=== PATIENT | male | born 1975 | race Two or more races ===

== ENCOUNTER 2023-05-11 19:44 | Inpatient (IN) | payer MEDICARE, MEDICAID ==
[~2023-05-11] VITALS: Ht 175.3 cm; Wt 63.6 kg
[2023-05-11] MEDS: D5W/SOD CHLO 0.9% 1,000 ML IV SCH ×2 (03:00→23:00)
[2023-05-11 20:57] LABS: Basophils # (auto) 0.1 10 ^3/uL (0-0.2); Basophils % (auto) 0.5 % (0.0-2.0); Eosinophils # (auto) 0.2 10 ^3/uL (0-0.8); Eosinophils % (auto) 1.3 % (0.0-7.0); Hematocrit 45.9 % (41.0-53.0); Hemoglobin 15.6 g/dL (13.5-17.5); Lymphocytes # (auto) 1.8 10 ^3/uL (0.4-5.4); Lymphocytes % (auto) 15.1 % (10.0-50.0); Mean Corpuscular Hgb Conc. 34.1 g/dL (32.0-36.0); Mean Corpuscular Volume 85.2 fL (80.0-100.0); Monocytes # (auto) 1.2 10 ^3/uL (0-1.3); Monocytes % (auto) 9.5 % (0.0-12.0); Neutrophils % (auto) 73.6 % (37.0-80.0); Nucleated Red Blood Cells % 0.1 %; Red Blood Cells 5.39 10^6/uL (4.5-5.90); Red Cell Distribution Width 14.1 % (11.8-14.3); White Blood Cell 12.3 10^3/uL (4.4-10.8)
[2023-05-11 21:07] LABS: Chloride 103 mmol/L (98-107); Potassium 4.5 mmol/L (3.5-5.1); Sodium 137 mmol/L (136-145)
[2023-05-11 21:08] LABS: Anion Gap 5 (5-15); Carbon Dioxide 29 mmol/L (20-30)
[2023-05-11 21:09] LABS: Calcium 9.9 mg/dL (8.5-10.1)
[2023-05-11 21:13] LABS: Glucose 117 mg/dL (74-106)
[2023-05-11 21:14] LABS: BUN/Creatinine Ratio 17.1 (10.0-20.0); Blood Urea Nitrogen 12 mg/dL (9-23)
[2023-05-11] MEDS ORDERED: SODIUM CHLORIDE 0.9% 1,000 ML IV ONE (22:30)
[2023-05-11] MEDS ORDERED: MORPHINE SULFATE 4 MG/ML SYR/VIAL IV ONE (22:30)
[2023-05-11] MEDS ORDERED: MORPHINE SULFATE INJ 2 MG/ml SYRG IV PRN (23:00)
[2023-05-11] MEDS ORDERED: ONDANSETRON HCL 4 MG/2 ML VIAL IV PRN (23:00)
[2023-05-12 00:15] VITALS: PULSE 87; RESP 16; O2SAT 96
[2023-05-12] MEDS ORDERED: LORazepam 2MG/ML-1ML VIAL IV ONE (03:15)
[2023-05-12 06:43] LABS: Basophils # (auto) 0.1 10 ^3/uL (0-0.2); Basophils % (auto) 0.6 % (0.0-2.0); Eosinophils # (auto) 0.3 10 ^3/uL (0-0.8); Hematocrit 39.6 % (41.0-53.0); Hemoglobin 13.6 g/dL (13.5-17.5); Lymphocytes # (auto) 2.5 10 ^3/uL (0.4-5.4); Lymphocytes % (auto) 27.9 % (10.0-50.0); Mean Corpuscular Hemoglobin 29.3 pg (28.0-32.0); Mean Corpuscular Hgb Conc. 34.5 g/dL (32.0-36.0); Mean Corpuscular Volume 84.9 fL (80.0-100.0); Monocytes % (auto) 11.4 % (0.0-12.0); Neutrophils % (auto) 57.1 % (37.0-80.0); Nucleated Red Blood Cells % 0.1 %; Red Blood Cells 4.66 10^6/uL (4.5-5.90); Red Cell Distribution Width 14.2 % (11.8-14.3); White Blood Cell 8.8 10^3/uL (4.4-10.8)
[2023-05-12 06:51] LABS: Alanine Aminotransferase 53 U/L (7-40); Albumin 3.8 g/dL (3.2-4.8); Alkaline Phosphatase 71 U/L (46-116); Anion Gap 6 (5-15); Aspartate Aminotransferase 32 U/L (13-40); BUN/Creatinine Ratio 15.3 (10.0-20.0); Blood Urea Nitrogen 11 mg/dL (9-23); Calcium 8.5 mg/dL (8.7-10.4); Carbon Dioxide 27 mmol/L (20-30); Chloride 106 mmol/L (98-107); Glucose 87 mg/dL (74-106); Potassium 3.8 mmol/L (3.5-5.1); Sodium 139 mmol/L (136-145)
[2023-05-12 06:52] LABS: Bilirubin, Total 0.7 mg/dL (0.2-1.0); Total Protein 6.2 g/dL (5.7-8.2)
[2023-05-12 08:12] LABS: INR 1.05 (0.9-1.15); Partial Thromboplastin Time 27.9 SEC (24.5-34.5)
[2023-05-12 08:15] LABS: Urine Epithelial Cast None Seen /hpf (<5)
[2023-05-12 08:27] LABS: Urine Bacteria NONE SEEN /hpf (None Seen); Urine Blood Negative /uL (Negative); Urine Clarity Clear (Clear); Urine Color Yellow (Yellow); Urine Protein, UAD 1+ (Negative); Urine Specific Gravity 1.019 (1.001-1.035); Urine Urobilinogen Normal (Negative); Urine WBC 16 /hpf (0 - 3)
[2023-05-12 08:55] VITALS: PULSE 80; RESP 18; O2SAT 95
[2023-05-12 09:20] LABS: Amphetamine Screen, Urine Neg (NEGATIVE); Barbiturate Scree,Urine Neg (NEGATIVE); Benzodiazephine Screen, Urine Neg (NEGATIVE); Cannabinoid Screen, Urine Neg (NEGATIVE); Cocaine Screen, Urine Neg (NEGATIVE); Opiate Scree,Urine Pos (NEGATIVE)
[2023-05-12 09:22] LABS: Phencyclidine Screen, Urine Neg (NEGATIVE)
[2023-05-12] MEDS ORDERED: ceFAZolin 2 GM/D5W100ml 100 ML IV ONE (12:10)
[2023-05-12] MEDS ORDERED: LIDOCAINE W/ EPINEPHRINE 1% 20ML VIAL ONE (12:29)
[2023-05-12] MEDS ORDERED: SUCCINYLCHOLINE CHLORIDE 20 MG/ML 10ML VIAL IV ONE (12:39)
[2023-05-12] MEDS ORDERED: fentaNYL CITRATE 100 MCG/2 ML VL ONE (12:41)
[2023-05-12] MEDS ORDERED: PROPOFOL 10 MG/ML 20 ML IV ONE (12:41)
[2023-05-12] MEDS ORDERED: ROCURONIUM 10MG/ML 10ML VIAL IV ONE (12:49)
[2023-05-12] MEDS ORDERED: ePHEDrine SULFATE 50 MG/ML AMP ONE (12:52)
[2023-05-12] MEDS ORDERED: BUPIVACAINE 0.25% INJ 50ML VIAL ONE (13:00)
[2023-05-12] MEDS ORDERED: MEPERIDINE HCL (25 MG/ML) 1ML VIAL ONE (13:04)
[2023-05-12] MEDS ORDERED: ROPIVACAINE 0.5% (5MG/ML) 20ML AMPULE IJ ONE (13:30)
[2023-05-12] MEDS ORDERED: SUGAMMADEX 200mg/2ml Vial (100MG/ML) IV ONE (13:39)
[2023-05-12 13:50] VITALS: O2SAT 100
[2023-05-12] MEDS ORDERED: ONDANSETRON HCL 4 MG/2 ML VIAL IV PRN (14:00)
[2023-05-12] MEDS ORDERED: MEPERIDINE HCL (25 MG/ML) 1ML VIAL IV PRN (14:00)
[2023-05-12] MEDS ORDERED: HYDROmorphone HCL 2 MG/ML VL/or syr IV PRN (14:00)
[2023-05-12 17:00] VITALS: BP 136/83; PULSE 67; RESP 18; TEMP 98; O2SAT 99
[2023-05-12] MEDS: ceFAZolin 1GM/50ML 50 ML IV SCH ×2 (17:26→23:59)
[2023-05-12 22:00] VITALS: BP 107/81; PULSE 84; RESP 16; TEMP 98; O2SAT 97
[2023-05-12] MEDS: POTASSIUM CHLORIDE 20 MEQ in D5W/LACTATED RINGERS 1,000 ML IV SCH (23:51)
[2023-05-13 05:00] VITALS: BP 138/84; PULSE 85; RESP 20; TEMP 99; O2SAT 97
[2023-05-13] MEDS: ceFAZolin 1GM/50ML 50 ML IV SCH ×2 (06:46→11:47)
[2023-05-13] MEDS: POTASSIUM CHLORIDE 20 MEQ in D5W/LACTATED RINGERS 1,000 ML IV SCH ×3 (07:54→10:54)
[2023-05-13 08:00] VITALS: BP 143/92; PULSE 77; RESP 16; TEMP 98.6; O2SAT 94
[2023-05-13 09:00] VITALS: BP 143/92; PULSE 77; RESP 16; TEMP 98.6; O2SAT 94
[2023-05-13] MEDS ORDERED: HYDR-4902 PO (11:07)
[2023-05-13] MEDS ORDERED: LEVO500T91 PO (11:07)
[2023-05-13] MEDS ORDERED: METR-344 PO (11:07)
[2023-05-13 12:29] VITALS: BP 143/92; PULSE 77; RESP 16; TEMP 98.6; O2SAT 94
== END 2023-05-13 14:05 | disposition home or self-care (01) | DRG 351 ==
LOC: ER 19:44 → EDBD 19:44 → OVERFLOW 23:04 → WEST WING 05-12 15:06
PROVIDERS: ADMIT Nurse Practitioner; ATTEND Family Medicine
PROC: 0YQ50ZZ Repair Right Inguinal Region, Open Approach (ICD-10-PCS; principal; 2023-05-12 12:44)
DX: K40.30 Unilateral inguinal hernia, with obstruction, without gangrene, not specified as recurrent (principal); K56.609 Unspecified intestinal obstruction, unspecified as to partial versus complete obstruction; Z59.00 Homelessness unspecified; F20.9 Schizophrenia, unspecified; E86.0 Dehydration; Z90.49 Acquired absence of other specified parts of digestive tract
CPT/HCPCS: 36415; 71045; 74176; 80048; 80053; 80307; 81001; 85025; 85610; 85730; 88302; 96360; 99291; G0378; J0330; J2704; J3490

== ENCOUNTER 2024-03-30 06:04 | Emergency (ER) | payer MEDICARE ==
[~2024-03-30] VITALS: Ht 182.9 cm; Wt 77.0 kg
[~2024-03-30 06:04] MED LIST: HYDR-4902 PO; LEVO500T91 PO; METR-344 PO
[2024-03-30 07:00] VITALS: BP 136/86; PULSE 82; RESP 15; TEMP 98.1; O2SAT 95
--- NOTE | 2024-03-30 07:01 | ED.PDOC ---
Musculoskeletal HPI Comments A 48 YEAR OLD MALE BROUGHT IN BY AMBULANCE PRESENTS TO THE ED WITH COMPLAINT OF BILATERAL FOOT PAIN. PATIENT STATES HE HAS BEEN EXPERIENCING BILATERAL FOOT PAIN DUE TO WALKING A LOT OUTSIDE DUE TO HIM BEING HOMELESS. PATIENT IS REQUESTING PAIN MEDICINE TO MANAGE HIS BILATERAL FOOT PAIN. PATIENT DENIES INJURY TO THE AFFECTED AREA, FEVER, CHILLS, SHORTNESS OF BREATH, CHEST PAIN, ABDOMINAL PAIN, NAUSEA, VOMITING, HEADACHE, OR OTHER COMPLAINTS. NO OTHER SYMPTOMS OR MODIFYING FACTORS AT THIS TIME. PATIENT IS ALERT, ORIENTED X 4, AND HAS STEADY GAIT. Chief Complaint: Lower Extremity Time Seen by MD: 06:28 Reviewed Notes: Nurses Notes, Medications, Allergies Allergies: Coded Allergies: NO KNOWN ALLERGIES (Unverified , 05/12/23) Home Meds Active Scripts Hydrocodone-Acetaminophen (Hydrocodone Bitartrate/AC 5-325 mg) 1 Tab Tab, 1 TAB PO QID PRN, #30 TAB Prov:MOLLY SOLOMON MD 05/13/23 Metronidazole (Flagyl) 500 Mg Tab, 1 TAB PO TID, #30 TAB Prov:MOLLY SOLOMON MD 05/13/23 Levofloxacin Hemihydrate (LEVAQUIN 500 MG) 500 Mg Tab, 1 TAB PO DAILY, #10 TAB Prov:MOLLY SOLOMON MD 05/13/23 Information Source: Patient Mode of Arrival: EMS Location: Bilateral Extremity Location: Foot Timing: Days Prehospital treatment: None Severity: Moderate Able to Move Extremity: Yes Bear Weight: Fully Pain: Moderate Mechanism: Blunt Trauma, Spontaneous Circumstances: Spontaneous Onset of Symptoms: Spontaneous Symptoms: Pain DVT Risk Factors: NONE Last Tetanus: Unknown Associated signs and symptoms: Foot pain Past Medical History PAST MEDICAL HISTORY: Schizophrenia Surgical History: Cholecystectomy Family History Family History: Reviewed,noncontributory to illness Social History Smoker: Cigarettes Alcohol: Occasionally Drugs: Marijuana, Methamphetamine Lives In: Homeless Constitutional: denies: chills, diaphoresis, fatigue, fever, malaise, sweats, weakness, others EENTM: denies: blurred vision, double vision, ear bleeding, ear discharge, ear drainage, ear pain, ear ringing, eye pain, eye redness, hearing loss, mouth pain, mouth swelling, nasal discharge, nose bleeding, nose congestion, nose pain, photophobia, tearing, throat pain, throat swelling, voice changes, others Respiratory: denies: cough, hemoptysis, orthopnea, SOB at rest, shortness of breath, SOB with excertion, stridor, wheezing, others Cardiovascular: denies: chest pain, dizzy spells, diaphoresis, Dyspnea on exertion, edema, irregular heart beat, left arm pain, lightheadedness, palpitations, PND, syncope, others Gastrointestinal: denies: abdomen distended, abdominal pain, blood streaked bowels, constipated, diarrhea, dysphagia, difficulty swallowing, hematemesis, melena, nausea, poor appetite, poor fluid intake, rectal bleeding, rectal pain, vomiting, others Genitourinary: denies: burning, dysuria, flank pain, frequency, hematuria, inc ontinence, penile discharge, penile sore, pain, testicle pain, testicle swelling, urgency, others Neurological: denies: dizziness, fainting, headache, left sided numbness, left sided weakness, numbness, paresthesia, pre-existing deficit, right sided numbness, right sided weakness, seizure, speech problems, tingling, tremors, weakness, others Musculoskeletal: reports: joint pain, muscle pain, others (BILATERAL FOOT PAIN); denies: back pain, gout, joint swelling, muscle stiffness, neck pain Integumetry: denies: bruises, change in color, change in hair/nails, dryness, laceration, lesions, lumps, rash, wounds, others Allergic/Immunocompromised: denies: Difficulty Healing, Frequent Infections, Hives, Itching, others Hematologic/Lymphatic: denies: anemia, blood clots, easy bleeding, easy bruising, swollen glands, others Endocrine: denies: excessive hunger, excessive sweating, excessive thirst, excessive urination, flushing, intolerance to cold, intolerance to heat, unexplained weight gain, unexplained weight loss, others Psychiatric: denies: anxiety, bipolar disorder, depression, hopeless, panic disorder, schizophrenia, sleepless, suicidal, others All Other Systems: Reviewed and Negative Physical Exam General Appearance: No Apparent Distress, Normal HEENT: Normal ENT Inspection, PERRL/EOMI, Pharynx Normal, TMs Normal Neck: Full Range of Motion, Non-Tender, Normal, Normal Inspection Respiratory: Chest Non-Tender, Lungs Clear, No Accessory Muscle Use, No Respiratory Distress, Normal Breath Sounds Cardiovascular: No Edema, No JVD, No Murmur, No Gallop, Normal Peripheral Pulses, Regular Rate/Rhythm Breast Exam: Deferred Gastrointestinal: No Organomegaly, Non Tender, No Pulsatile Mass, Normal Bowel Sounds, Soft Genitalia: Deferred Pelvic: Deferred Rectal: Deferred Extremities: No calf tenderness, Normal capillary refill, Normal inspection, Normal range of motion, No pedal edema, Tender (BILATERAL FOOT, NO REDNESS, SW ELLING AND OPEN WOUNDS, NORMAL FEET. ) Musculoskeletal : Apperance: Normal Neurologic: Alert, wind field manager II-XII nml as Tested, No Motor Deficits, Normal Affect, Normal Mood, No Sensory Deficits Cerebellar Function: Normal Reflexes: Normal Skin: Dry, Normal Color, Warm Peripheral Pulses: 2+ carotid (R), 2+ carotid (L), 2+ dorsalis pedis (R), 2+ dorsalis pedis (L) Lymphatic: No Adenopathy Was a procedure done? Was a procedure done?: No Differential Diagnosis EXT Differential Diagnosis: Sprain, DJD, Strain, Bursitis Other Differential Diagnosis CHRONIC FOOT PAIN X-Ray, Labs, Meds, VS Vital Signs Date Time Temp Pulse Resp B/P (MAP) Pulse Ox O2 Delivery O2 Flow Rate FiO2 03/30/24 06:46 95 Room Air 0 03/30/24 06:04 98.1 82 15 136/86 (103) 95 Current Medications Medications (Trade) Dose Ordered Sig/Arianna Route Start Time Stop Time Status Last Admin Ketorolac Tromethamine (Toradol Injection) 60 mg ONCE ONCE IM 03/30/24 07:00 03/30/24 07:17 DC 03/30/24 07:03 X-Ray, Labs, Meds, VS Comment EXTERNAL NOTES: NONE LABS ORDERED: NONE REVIEWED AND INTERPRETED RESULTS: NONE IMAGING ORDERED: NONE INDEPENDENT HISTORIANS: NONE TREATMENTS ORDERED: TORADOL 60 MG IM, FOOD AND JUICE GIVE TO THE PATIENT PATIENT'S CASE AND RESULTS HAVE BEEN DISCUSSED WITH THE ED ATTENDING PHYSICIAN AND THEY AGREE WITH MY PLAN OF CARE. I HAVE INSTRUCTED THE PATIENT TO FOLLOW UP WITH THEIR PCP IN 1-2 DAYS. THE PATIENT FULLY UNDERSTANDS AND IS AWARE THEY NEED TO FOLLOW UP WITH THEIR PCP FOR FURTHER EVALUATION IF THEIR SYMPTOMS PERSIST. Time of 1ST Reevaluation: 07:30 Reevaluation 1ST: Improved Patient Education/Counseling: Diagnosis, Treatment, Need For Follow Up Family Education/Counseling: Diagnosis, Treatment, Need For Follow Up Medical Screening: No EMC Exist At This Time Departure 1 Departure Time of Disposition: 07:30 Impression: Primary Impression: Bilateral foot pain Additional Impression: Homelessness Disposition: HOME / SELF CARE / HOMELESS Condition: Stable Additional Instructions: FOLLOW-UP WITH PCP IN 1 TO 2 DAYS. TAKE MEDICATIONS PRESCRIBED. RETURN TO ED FOR ANY NEW OR WORSENING SYMPTOMS. e-Prescriptions Naproxen (Naproxen) 500 Mg Tab 500 MG PO BID, #30 TAB Prov: LUIS PARKS 03/30/24 Discharged With: Self Critical Care Note Critical Care Time?: No Stability Stability form required: No I personally scribed for LUIS PARKS ([email or web address]) on 03/30/24 at 07:01. Electronically submitted by Barrera Benitez ([email or web address]). LUIS PARKS Mar 30, 2024 07:01
[2024-03-30] MEDS: KETOROLAC TROMETH 60MG/2ML VIAL IM ONE (07:03)
[2024-03-30] MEDS ORDERED: NAPR-746 PO (07:32)
== END 2024-03-30 07:52 | disposition home or self-care (01) ==
LOC: ER 06:04 → EDBD 06:04 → ER 07:32
DX: M79.671 Pain in right foot (principal); M79.672 Pain in left foot; F20.9 Schizophrenia, unspecified; F17.210 Nicotine dependence, cigarettes, uncomplicated; F15.90 Other stimulant use, unspecified, uncomplicated; Z90.49 Acquired absence of other specified parts of digestive tract; Z59.00 Homelessness unspecified; Z79.899 Other long term (current) drug therapy
CPT/HCPCS: 96372; 99283; J1885

== ENCOUNTER 2024-03-30 17:33 | Emergency (ER) | payer MEDICARE ==
[~2024-03-30] VITALS: Ht 175.3 cm; Wt 65.9 kg
[~2024-03-30 17:33] MED LIST changes: +NAPR-746 PO
--- NOTE | 2024-03-30 18:02 | ED.PDOC ---
Psychiatric HPI Comments 48 y.o male presents to the ED for an evaluation of mental health. Patient states he has a history of schizophrenia but has not been able to get his medication in a "long time". Patient states that he is homeless and has not been able to access a primary care provider or retrieve medication. Patient does state that he utilize his methamphetamine occasionally. Patient states he wants his medication but also needs mental help and is willing to speak to a psychiatrist for placement at a facility. Patient is no SI, HI or has any pain at this time. Patient does displays signs of tardive dyskinesia. Vital signs were stable. Chief Complaint: Mental Health Time Seen by MD: 17:56 Reviewed Notes: Nurses Notes, Medications, Allergies Information Source: Patient Mode of Arrival: Ambulatory Severity: Unable to Care for Self Severity of Pain: None Severity of Mental Status: Moderate Severity of Symptoms: Moderate Timing: Days Duration: Since onset Presents with: None Ingestion: None Circumstance: Medical Clearance Current substance abuse: Unknown Stressors: None History of: Schizophrenia Associated signs and symptoms: None Past Medical History PAST MEDICAL HISTORY: Schizophrenia Past Medical History (Other): Possible tardive dyskinesia Surgical History: Cholecystectomy Family History Family History: Reviewed,noncontributory to illness Social History Smoker: Cigarettes Alcohol: Occasionally Drugs: Marijuana, Methamphetamine Lives In: Homeless Constitutional: denies: chills, diaphoresis, fatigue, fever, malaise, sweats, weakness, others EENTM: denies: blurred vision, double vision, ear bleeding, ear discharge, ear drainage, ear pain, ear ringing, eye pain, eye redness, hearing loss, mouth pain, mouth swelling, nasal discharge, nose bleeding, nose congestion, nose pain, photophobia, tearing, throat pain, throat swelling, voice changes, others Respiratory: denies: cough, hemoptysis, orthopnea, SOB at rest, shortness of breath, SOB with excertion, stridor, wheezing, others Cardiovascular: denies: chest pain, dizzy spells, diaphoresis, Dyspnea on exertion, edema, irregular heart beat, left arm pain, lightheadedness, palpitations, PND, syncope, others Gastrointestinal: denies: abdomen distended, abdominal pain, blood streaked bowels, constipated, diarrhea, dysphagia, difficulty swallowing, hematemesis, melena, nausea, poor appetite, poor fluid intake, rectal bleeding, rectal pain, vomiting, others Genitourinary: denies: burning, dysuria, flank pain, frequency, hematuria, incontinence, penile discharge, penile sore, pain, testicle pain, testicle swelling, urgency, others Neurological: denies: dizziness, fainting, headache, left sided numbness, left sided weakness, numbness, paresthesia, pre-existing deficit, right sided numbness, right sided weakness, seizure, speech problems, tingling, tremors, weakness, others Musculoskeletal: reports: others (Possible tardive dyskinesia.); denies: back pain, gout, joint pain, joint swelling, muscle pain, muscle stiffness, neck pain Integumetry: denies: bruises, change in color, change in hair/nails, dryness, laceration, lesions, lumps, rash, wounds, others Allergic/Immunocompromised: denies: Difficulty Healing, Frequent Infections, Hives, Itching, others Hematologic/Lymphatic: denies: anemia, blood clots, easy bleeding, easy bruising, swollen glands, others Endocrine: denies: excessive hunger, excessive sweating, excessive thirst, excessive urination, flushing, intolerance to cold, intolerance to heat, unexplained weight gain, unexplained weight loss, others Psychiatric: reports: schizophrenia; denies: anxiety, bipolar disorder, depression, hopeless, panic disorder, sleepless, suicidal, others All Other Systems: Reviewed and Negative Physical Exam Exam Comments Patient is dirty and not well kempt. General Appearance: Moderate Distress (Patient appears to be in moderate distress at time of evaluation with tardive flu-like physical movements.), Normal HEENT: Normal ENT Inspection, Pharynx Normal, TMs Normal Neck: Full Range of Motion, Non-Tender, Normal, Normal Inspection Respiratory: Chest Non-Tender, Lungs Clear, No Accessory Muscle Use, No Respiratory Distress, Normal Breath Sounds Cardiovascular: No Edema, No JVD, No Murmur, No Gallop, Normal Peripheral Pulses, Regular Rate/Rhythm Breast Exam: Deferred Gastrointestinal: No Organomegaly, Non Tender, No Pulsatile Mass, Normal Bowel Sounds, Soft Genitalia: Deferred Pelvic: Deferred Rectal: Deferred Extremities: No calf tenderness, Normal capillary refill, Normal inspection, Normal range of motion, Non-tender, No pedal edema Neurologic: Alert, No Sensory Deficits Cerebellar Function: NOT DONE Reflexes: NOT DONE Skin: Dry, Normal Color, Warm Lymphatic: No Adenopathy Was a procedure done? Was a procedure done?: No Psych Differential Dx Psych. Differential Dx: Schizoprenia, Sleepless, Other (Possible tardive dyskinesia) Other Differentail Dx schizophrenia. Medication noncompliant X-Ray, Labs, Meds, VS Vital Signs Date Time Temp Pulse Resp B/P (MAP) Pulse Ox O2 Delivery O2 Flow Rate FiO2 03/31/24 00:53 62 62 96 Room Air 03/31/24 00:53 98.0 62 17 118/82 (94) 96 98.0 03/30/24 17:43 97.8 85 19 128/88 (101) 96 Lab Test 03/30/24 18:27 Range/Units White Blood Count 8.0 4.4-10.8 10^3/uL Red Blood Count 4.89 4.5-5.90 10^6/uL Hemoglobin 14.3 13.5-17.5 g/dL Hematocrit 41.4 41.0-53.0 % Mean Corpuscular Volume 84.5 80.0-100.0 fL Mean Corpuscular Hemoglobin 29.2 28.0-32.0 pg Mean Corpuscular Hemoglobin Concent 34.6 32.0-36.0 g/dL Red Cell Distribution Width 14.0 11.8-14.3 % Platelet Count 330 140-450 10^3/uL Mean Platelet Volume 6.4 L 6.9-10.8 fL Neutrophils (%) (Auto) 53.0 37.0-80.0 % Lymphocytes (%) (Auto) 31.0 10.0-50.0 % Monocytes (%) (Auto) 12.2 H 0.0-12.0 % Eosinophils (%) (Auto) 2.7 0.0-7.0 % Basophils (%) (Auto) 1.1 0.0-2.0 % Neutrophils # (Auto) 4.3 1.6-8.6 10 ^3/uL Lymphocytes # (Auto) 2.5 0.4-5.4 10 ^3/uL Monocytes # (Auto) 1.0 0-1.3 10 ^3/uL Eosinophils # (Auto) 0.2 0-0.8 10 ^3/uL Basophils # (Auto) 0.1 0-0.2 10 ^3/uL Nucleated Red Blood Cells 0.0 % Sodium Level 139 136-145 mmol/L Potassium Level 4.4 3.5-5.1 mmol/L Chloride Level 104 98-107 mmol/L Carbon Dioxide Level 29 20-31 mmol/L Anion Gap 6 5-15 Blood Urea Nitrogen 25 H 9-23 mg/dL Creatinine 0.94 0.700-1.30 mg/dL Glomerular Filtration Rate Calc 100 >90 mL/min BUN/Creatinine Ratio 26.6 H 10.0-20.0 Serum Glucose 98 74-106 mg/dL Calcium Level 10.1 8.7-10.4 mg/dL Total Bilirubin 0.5 0.2-1.0 mg/dL Aspartate Amino Transferase (AST) 30 13-40 U/L Alanine Aminotransferase (ALT) 49 H 7-40 U/L Alkaline Phosphatase 90 46-116 U/L Total Protein 7.1 5.7-8.2 g/dL Albumin 4.3 3.2-4.8 g/dL Plasma/Serum Blood Alcohol 3.2 <10 mg/dL X-Ray, Labs, Meds, VS Comment All studies performed in the ED were evaluated by me personally. Laboratories were relatively unremarkable. Urine and drug screen was pending at time of this note. Patient care will be transferred to Dr. Gan for evaluation of results as well as conversation with psychiatry once that occurs. Time of 1ST Reevaluation: 01:50 Reevaluation 1ST: Unchanged Consultation: PCP, Psychiatry Patient Education/Counseling: Diagnosis, Treatment, Prognosis Family Education/Counseling: Diagnosis, Treatment, No Family Present Departure 1 Departure Time of Disposition: 01:51 Impression: Primary Impression: Schizophrenia Additional Impression: Homeless Disposition: 30 STILL A PATIENT Condition: Fair Discharged With: Self Critical Care Note Critical Care Time?: No Stability Stability form required: No I personally scribed for BENEDICT LEVI PAC ([email or web address]) on 03/30/24 at 18:02. Electronically submitted by Kasey Muñiz ([facility]). BENEDICT LEVI PAC Mar 30, 2024 18:02
[2024-03-30 18:40] LABS: Basophils # (auto) 0.1 10 ^3/uL (0-0.2); Basophils % (auto) 1.1 % (0.0-2.0); Eosinophils # (auto) 0.2 10 ^3/uL (0-0.8); Eosinophils % (auto) 2.7 % (0.0-7.0); Hematocrit 41.4 % (41.0-53.0); Hemoglobin 14.3 g/dL (13.5-17.5); Lymphocytes # (auto) 2.5 10 ^3/uL (0.4-5.4); Mean Corpuscular Hemoglobin 29.2 pg (28.0-32.0); Mean Corpuscular Hgb Conc. 34.6 g/dL (32.0-36.0); Mean Corpuscular Volume 84.5 fL (80.0-100.0); Monocytes % (auto) 12.2 % (0.0-12.0); Neutrophils # (auto) 4.3 10 ^3/uL (1.6-8.6); Platelet Count (auto) 330 10^3/uL (140-450); Red Blood Cells 4.89 10^6/uL (4.5-5.90)
[2024-03-30 19:00] LABS: Albumin 4.3 g/dL (3.2-4.8); Alkaline Phosphatase 90 U/L (46-116); Anion Gap 6 (5-15); Aspartate Aminotransferase 30 U/L (13-40); BUN/Creatinine Ratio 26.6 (10.0-20.0); Bilirubin, Total 0.5 mg/dL (0.2-1.0); Blood Alcohol 3.2 mg/dL (<10); Calcium 10.1 mg/dL (8.7-10.4); Carbon Dioxide 29 mmol/L (20-31); Chloride 104 mmol/L (98-107); Glucose 98 mg/dL (74-106); Potassium 4.4 mmol/L (3.5-5.1); Sodium 139 mmol/L (136-145); Total Protein 7.1 g/dL (5.7-8.2)
[2024-03-30 19:03] LABS: Alanine Aminotransferase 49 U/L (7-40); Blood Urea Nitrogen 25 mg/dL (9-23)
--- NOTE | 2024-03-31 03:46 | DVHINCON2 ---
Date of Service if different f: Mar 31, 2024 Time of Service: 03:17 Consult Consult Note PSYCHIATRY ED NEW CONSULT HPI: 48 yo M pt with PPH of schizophrenia presents to ED for safety, psychiatric stabilization and possible med initiation/optimization in setting of homelessness, med noncompliance, and med management for schizophrenia. Psychiatry consulted for safety evaluation and recommendations in context of current presentation Per pt, reports NC/NT AH, vague paranoia, confusion, and disorganized thinking in setting on untreated schizophrenia complicated by ongoing meth use with last use several days ago. Pt also c/o nonspecific depressed moods and anxiety symptoms resulting in poor sleep/appetite, restlessness, and irritability. Denies SI/HI. Denies acute psychosocial stressors although chronically homeless with no/limited support system Pt currently does not have psychiatrist/therapist out in community although has sought outpt MH services in past. Currently not on any psychotropic agents for past several months. Prior psych med trials Thorazine, seroquel, olanzapine, mirtazapine. Hx of med noncompliance noted as pt w/ long hx of meth dependency. Never , no children, unemployed/ssi, chronically homeless, currently on probation for drug charges, limited support system noted. Unknown trauma hx. Unknown FH. No acute medical issues, hx of seizures/TBI, or recent head injuries, NKDA Does not have hx of suicide attempts/SIB/PSG although multiple prior psych hospitalizations for psychosis including recent admission several months ago. Denies history of violence, unprovoked aggression, or assaultive behaviors. Does not have access to firearms. Currently denies SI/HI. MSE: General Appearance/Behavior: Alert and awake; appears older than stated age, marginally fair/poor grooming and hygiene; calm and cooperative, fair eye contact, no PMA/PMR, TD noted Speech: incoherent and mumbling at times Thought Process: linear but limited/slightly impoverished Thought Content: Abnormal Thoughts and Perceptions: None Homicidality / Violent Thoughts: None Suicidality: adamantly denies SI Hallucinations: + AH Delusions: + paranoid delusions Obsessions /compulsions : None Judgment and Insight: marginal to limited Mood & Affect: "anxious" with mood-congruent, indifferent, appropriate Orientation: oriented to person, place, time Attention/Concentration: appears intact Assessment: 48 yo M pt with PPH of schizophrenia presents to ED for safety, psychiatric stabilization and possible med initiation/optimization in setting of homelessness, med noncompliance, meth use, and med management for schizophrenia Pt p/w NC/NT AH, vague paranoia, confusion, and disorganized thinking in setting on untreated schizophrenia complicated by ongoing meth use. No/limited protective factors presently. Not on any psychotropics for past several months which maybe contributing to current symptoms. No outpt MH services at present. Pt will benefit from inpatient psych admission for safety, psychiatric stabilization and possible medication initiation/ optimization. Pt willing to transfer to inpt psych hospitalization voluntarily. Primary Diagnosis: Schizophrenia, CUT. Meth use disorder, moderate Recommend vol transfer to inpt psych facility for higher level of care per pts request Recommend restarting Quetiapine 200 mg bid + Benztropine 1 mg bid in setting of TD noted on exam Risks/benefits/alternative treatments discussed, informed consent provided by pt If patient later refuses voluntary hospitalization or if no voluntary beds are available, please reconsult telepsych services to evaluate for 5150 hold. Reconsult telepsych services if pt requests to be discharged from ED prior to transfer Pt verbalized understanding and is receptive to above tx plan This case was discussed with ED nurse/provider and all parties in agreement with above tx plan Thomas Moncada MD Plan discussed with: Patient THOMAS MONCADA MD Mar 31, 2024 03:46
[2024-03-31 03:52] LABS: Urine Bacteria FEW /hpf (None Seen); Urine Blood TRACE /uL (Negative); Urine Clarity Turbid (Clear); Urine Color Yellow (Yellow); Urine Mucus FEW (None Seen); Urine Protein, UAD 2+ (Negative); Urine Specific Gravity 1.025 (1.001-1.035); Urine Urobilinogen Normal (Negative); Urine WBC 483 /hpf (0 - 3); Urine pH 5.5 (5.0-9.0)
[2024-03-31 03:55] LABS: Amphetamine Screen, Urine Pos (NEGATIVE); Barbiturate Scree,Urine Neg (NEGATIVE); Benzodiazephine Screen, Urine Neg (NEGATIVE); Cannabinoid Screen, Urine Neg (NEGATIVE); Cocaine Screen, Urine Neg (NEGATIVE); Opiate Scree,Urine Neg (NEGATIVE); Phencyclidine Screen, Urine Neg (NEGATIVE)
[2024-03-31] MEDS: BENZTROPINE MESY 0.5 MG TAB PO ONE (06:04)
[2024-03-31] MEDS: QUEtiapine FUMARATE 100 MG TAB PO SCH (06:05)
[2024-03-31 06:52] VITALS: PULSE 80; RESP 15; O2SAT 99
[2024-03-31 08:00] VITALS: PULSE 58; RESP 13; O2SAT 95
[2024-03-31 16:56] VITALS: BP 91/64; PULSE 89; RESP 12; TEMP 98.1; O2SAT 97
== END 2024-03-31 17:20 | disposition short-term general hospital (02) ==
LOC: ER 17:33
DX: F20.9 Schizophrenia, unspecified (principal); F17.210 Nicotine dependence, cigarettes, uncomplicated; F15.90 Other stimulant use, unspecified, uncomplicated; Z59.00 Homelessness unspecified; Z90.49 Acquired absence of other specified parts of digestive tract; Z79.899 Other long term (current) drug therapy
CPT/HCPCS: 36415; 80053; 80307; 80320; 81001; 82962; 85025